=== PATIENT | male | born 1990 | race Caucasian/White ===

== ENCOUNTER 2017-12-26 09:21 | Emergency (ER) | payer OTHER ==
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
[2017-12-26] MEDS ORDERED: Ibuprofen 800 MG TAB ONE (11:20)
== END 2017-12-26 11:22 | disposition home or self-care (01) ==
LOC: ERS 09:21
DX: M25.511 Pain in right shoulder (principal); M79.651 Pain in right thigh; F17.210 Nicotine dependence, cigarettes, uncomplicated; Y04.8XXA Assault by other bodily force, initial encounter
CPT/HCPCS: 70450